=== PATIENT | female | born 1965 | race Two or more races ===

== ENCOUNTER → 2016-10-07 | Day surgery (SDC) | payer OTHER ==
[2016-10-05 16:26] LABS: Basophils # (auto) 0.1 uL; Basophils % (auto) 1.2 % (0.0-2.0); CONDITION Y; DEFINITIVE SEE PRINTOUT; Eosinophils # (auto) 0.1 uL; Eosinophils % (auto) 1.5 % (0.0-7.0); Hemoglobin 9.6 g/dL (12.2-16.2); Lymphocytes # (auto) 1.8 uL; Lymphocytes % (auto) 33.1 % (10.0-50.0); Mean Corpuscular Hemoglobin 22.7 pg (28.0-32.0); Mean Corpuscular Hgb Conc. 31.1 g/dL (32.0-36.0); Mean Corpuscular Volume 72.9 fL (80.0-100.0); Mean Platelet Volume 11.2 fL (7.4-10.4); Monocytes # (auto) 0.5 uL; Monocytes % (auto) 8.7 % (0.0-12.0); Neutrophils % (auto) 55.5 % (37.0-80.0); Platelet Count (auto) 442 10^3/uL (140-450); Red Cell Distribution Width 17.4 % (11.6-16.0); White Blood Cell 5.4 10^3/uL (4.4-10.8)
[2016-10-05 16:43] LABS: Albumin 3.3 g/dL (3.4-5.0); BUN/Creatinine Ratio 19.2; Calcium 8.6 mg/dL (8.5-10.1); Potassium 4.1 mmol/L (3.5-5.1)
[2016-10-05 16:44] LABS: INR 0.92 (0.9-1.15); Partial Thromboplastin Time 25.8 sec (22.64-33.71)
[2016-10-05 16:46] LABS: Bilirubin, Total 0.4 mg/dL (0.2-1.0); Total Protein 7.4 g/dL (6.4-8.2)
[2016-10-05 16:52] LABS: Urine Bilirubin Negative (Negative); Urine Blood Negative /uL (Negative); Urine Color Yellow (Yellow); Urine Glucose Normal (Normal); Urine Mucus FEW (None Seen); Urine Nitrite Negative (Negative); Urine RBC <1 /hpf (0 - 4); Urine Squamous Epithelial Cell FEW /hpf (<5); Urine Urobilinogen Normal (Negative); Urine pH 7.5 (5.0-8.0)
[2016-10-05 16:54] LABS: Urine Ketone 1+ (Negative)
[~2016-10-07] VITALS: Ht 162.6 cm; Wt 76.7 kg
[~2016-10-07] MED LIST: BUPIVACAINE 0.75% INJ 10ML MPV SDV IJ ONE; DEXAMETHASONE SOD PHOS 10MG/1ML VIAL INJ ONE; KETOROLAC TROMETH 30 MG/ML 1ML VIAL IV ONE; KETOROLAC TROMETH 30 MG/ML 1ML VIAL ONE; METOCLOPRAMIDE HCL 5MG/ml INJ 2ml VIAL ONE; MIDAZOLAM HCL 1MG/1ML-2 ML VIAL ONE; ONDANSETRON HCL 4 MG/2 ML VIAL ONE; PROPOFOL 10 MG/ML 20 ML IV ONE; ceFAZolin 1GM VL ONE; ceFAZolin 1GM/50ML D5W 50 ML IV ONE; fentaNYL CITRATE 100 MCG/2 ML VL IV PRN; fentaNYL CITRATE 100 MCG/2 ML VL ONE
[2016-10-07 10:48] VITALS: BP 126/78
== END | disposition home or self-care (01) ==
LOC: SUR 07:10
PROVIDERS: ATTEND Podiatrist Foot & Ankle Surgery
DX: G57.61 Lesion of plantar nerve, right lower limb (principal); Z91.040 Latex allergy status; Z88.8 Allergy status to other drugs, medicaments and biological substances; D64.9 Anemia, unspecified
CPT/HCPCS: 28080; 36415; 80053; 81001; 85025; 85610; 85730; J0690; J1100; J1885; J2250; J2405; J2704; J2765; J3010; J3490; V2790